=== PATIENT | female | born 1965 | race Caucasian/White ===

== ENCOUNTER → 2019-11-12 10:56 | Outpatient (BNVA) | payer OTHER, SELFPAY | PROVIDERS: Family Provider Nurse Practitioner Family; PCP Nurse Practitioner Family; Visit Provider Nurse Practitioner Family | DX: E03.9 Hypothyroidism, unspecified (principal) | CPT/HCPCS: 84443 ==

== ENCOUNTER → 2020-04-28 13:46 | Outpatient (BNVA) | payer OTHER, SELFPAY | PROVIDERS: Family Provider Nurse Practitioner Family; PCP Nurse Practitioner Family; Visit Provider Registered Nurse | DX: N39.0 Urinary tract infection, site not specified (principal) | CPT/HCPCS: 81000 ==

== ENCOUNTER → 2020-11-03 10:33 | Outpatient (BNVA) | payer OTHER, SELFPAY | PROVIDERS: Family Provider Nurse Practitioner Family; PCP Registered Nurse; Visit Provider Registered Nurse | DX: E03.9 Hypothyroidism, unspecified (principal); E78.5 Hyperlipidemia, unspecified; Z12.31 Encounter for screening mammogram for malignant neoplasm of breast | CPT/HCPCS: 80053; 80061; 84443 ==

== ENCOUNTER 2020-12-20 10:45 | Outpatient (CLI) | payer OTHER, SELFPAY ==
--- NOTE | 2020-12-20 11:00 | MM_ITS ---
WS: [id number] Bilateral screening digital mammogram, 12/20/2020 Clinical Data: Z12.31 - Encounter for screening mammogram for malignant ... Comparison: 10/13/2008, 07/16/2007. Findings: The breast parenchymal pattern shows heterogeneous density. The right breast shows an increase in den sity centrally and numerous calcifications 5 cm posterior to the areola on the cc view. The MLO view of the right breast only shows scattered calcifications. Left breast shows no spiculated masses or clustered calcifications. There are no secondary signs of c arcinoma. MM/[place] [id number] Impression: 1. Increase in density in the central right breast with associated scattered ca lcifications and recommend right MLO view and ultrasound of the central right b reast. 2. Negative left breast. BIRADS: 0-Incomplete: Need additional imaging evaluation FOLLOW UP: See Report The CAD electric distribution checker was used.
== END 2020-12-20 10:46 | disposition home or self-care (01) ==
LOC: RADSHAW 10:46
PROVIDERS: PCP Registered Nurse; Visit Provider Registered Nurse
DX: Z12.31 Encounter for screening mammogram for malignant neoplasm of breast (principal)
CPT/HCPCS: 77067

== ENCOUNTER 2021-01-01 13:56 | Outpatient (CLI) | payer OTHER, SELFPAY ==
--- NOTE | 2021-01-01 14:00 | MM_ITS ---
WS: [id number] RIGHT DIGITAL MAMMOGRAPHY WITH CAD CLINICAL INFORMATION: Abnormal Mammogram, Right breast density and calcifications COMPARISON: December 20, 2020 TECHNIQUE: 3 views of the right breast were obtained. FINDINGS: Scattered fibroglandular densities of the right breast. Stable area of asymmetric parenchymal density in the central right breast with several punctate and clustered calcifications increased since 2008. Dense asymmetric tissue persists on the compression views. Ultrasound is pending. ULTRASOUND BREAST RIGHT TECHNIQUE: Ultrasound right breast focused area of concern. CLINICAL INFORMATION: Abnormal Mammogram, Right breast density and calcifications FINDINGS: Ultrasound right breast 6 clock position and 12:00 position. Additional images about the nipple. Den se underlying parenchymal tissue. A few incidental dilated ducts deep to the areola. No suspicious le sions. No lesions to target for biopsy. MM/[place] [id number] IMPRESSION: BI-RADS: 3-Probably Benign FOLLOW UP: 6 Month Follow-up Recommend 6 month follow-up right diagnostic mammography with spot magnificatio n views of the calcifications in the central right breast
--- NOTE | 2021-01-01 14:30 | US_ITS ---
WS: [id number] RIGHT DIGITAL MAMMOGRAPHY WITH CAD CLINICAL INFORMATION: Abnormal Mammogram, Right breast density and calcifications COMPARISON: December 20, 2020 TECHNIQUE: 3 views of the right breast were obtained. FINDINGS: Scattered fibroglandular densities of the right breast. Stable area of asymmetric parenchymal density in the central right breast with several punctate and clustered calcifications increased since 2008. Dense asymmetric tissue persists on the compression views. Ultrasound is pending. ULTRASOUND BREAST RIGHT TECHNIQUE: Ultrasound right breast focused area of concern. CLINICAL INFORMATION: Abnormal Mammogram, Right breast density and calcifications FINDINGS: Ultrasound right breast 6 clock position and 12:00 position. Additional images about the nipple. Den se underlying parenchymal tissue. A few incidental dilated ducts deep to the areola. No suspicious le sions. No lesions to target for biopsy. US/US breast RT limited* [id number] IMPRESSION: BI-RADS: 3-Probably Benign FOLLOW UP: 6 Month Follow-up Recommend 6 month follow-up right diagnostic mammography with spot magnificatio n views of the calcifications in the central right breast
== END 2021-01-01 13:57 | disposition home or self-care (01) ==
LOC: RADSHAW 13:59
PROVIDERS: PCP Registered Nurse; Visit Provider Registered Nurse
DX: R92.8 Other abnormal and inconclusive findings on diagnostic imaging of breast (principal); R92.1 Mammographic calcification found on diagnostic imaging of breast
CPT/HCPCS: 76642; 77065

== ENCOUNTER → 2022-01-08 10:21 | Outpatient (BNVA) | payer OTHER, SELFPAY | PROVIDERS: PCP Registered Nurse; Visit Provider Registered Nurse | DX: E03.9 Hypothyroidism, unspecified (principal); Z68.29 Body mass index [BMI] 29.0-29.9, adult | CPT/HCPCS: 80053; 80061; 84443; 85025 ==

== ENCOUNTER → 2023-03-18 14:22 | Outpatient (BNVA) | payer OTHER, SELFPAY | PROVIDERS: PCP Registered Nurse; Visit Provider Registered Nurse | DX: E03.9 Hypothyroidism, unspecified (principal); Z13.6 Encounter for screening for cardiovascular disorders; E55.9 Vitamin D deficiency, unspecified | CPT/HCPCS: 80053; 80061; 82306; 82607; 84443; 85025 ==

== ENCOUNTER → 2024-07-02 09:26 | Outpatient (BNVA) | payer OTHER, SELFPAY | PROVIDERS: PCP Registered Nurse; Visit Provider Registered Nurse | DX: E03.9 Hypothyroidism, unspecified (principal) | CPT/HCPCS: 84439; 84443 ==

== ENCOUNTER 2025-01-07 11:00 | Outpatient (CLI) | payer OTHER, SELFPAY ==
--- NOTE | 2025-01-07 11:06 | MM_ITS ---
WS: [id number] BILATERAL SCREENING DIGITAL TOMOSYNTHESIS MAMMOGRAM WITH CAD HISTORY: SCREENING COMPARISON: 01/01/2021, 12/20/2020 Bilateral CC and MLO views with tomosynthesis and synthetic mammography submitted. Computer aided detection analyzed. Breast composition: The breasts are heterogeneously dense, which may obscure small masses. No suspicious masses, microcalcifications or architectural distortion. Numerous calcifications in the RIGHT breast. These were present on the prior study from 2020. There is no cluster of calcifications or pleomorphic changes. The asymmetry is noted in the anterior RIGHT breast are stable. MM/MM scr BI tomosynthesis [id number] IMPRESSION: BI-RADS: 2 - Benign FOLLOW UP: 1 Year Follow-up
== END 2025-01-07 11:01 | disposition home or self-care (01) ==
LOC: RAD 11:02
PROVIDERS: PCP Registered Nurse; Visit Provider Registered Nurse
DX: Z12.31 Encounter for screening mammogram for malignant neoplasm of breast (principal); R92.333 Mammographic heterogeneous density, bilateral breasts; R92.1 Mammographic calcification found on diagnostic imaging of breast; N64.89 Other specified disorders of breast
CPT/HCPCS: 77063; 77067